=== PATIENT | female | born 1945 | race Caucasian/White ===

== ENCOUNTER 2016-10-06 10:42 | Emergency (ER) | payer OTHER ==
[~2016-10-06] VITALS: Ht 157.5 cm; Wt 76.1 kg
[~2016-10-06 10:42] MED LIST: APRESOLINE25 MG PO; ASPIRIN81 M1 PO; AZELASTINE137 MCG/0. NS; Aspirin E.C. PO; CRESTOR40 MG PO; Cardizem CD,Cartia X PO; DOXYCYCLINE HY100 MG PO; DULERA 200 MCG/13 GM IH; FLUTICASONE PRO16 GM BOTH NARES; Flonase BOTH NARES; HYDROCHLOROTHIA50 MG PO; Hydrodiuril,Oretic,E PO; PREDNISONE10 M1 PO; TRICOR145 MG PO; Tricor PO; VITAMIN D31000 UNI2 PO; predniSONE PO
[2016-10-06 12:12] LABS: HEMATOCRIT 41.1 % (36.0-46.0); MCH 29.6 PG (29.0-34.0); MCHC 33.6 G/DL (30.0-36.0); MEAN PLAT.VOLUME 9.9 uM^3 (9.5-12.4); PLATELET COUNT 386 K/uL (156-360); RBC DIS.WIDTH-CV 13.1 % (11.8-14.6); RBC DIS.WIDTH-SD 42.2 % (39-53); RED BLOOD COUNT 4.67 M/uL (3.80-5.20); WHITE BLOOD COUNT 6.9 K/uL (4.1-10.2)
[2016-10-06 12:25] LABS: CHLORIDE 108 mEq/L (99-109); POTASSIUM 4.2 mEq/L (3.7-5.4); SODIUM 141 mEq/L (136-147)
[2016-10-06 12:26] LABS: GLUCOSE 83 mg/dL (70-99)
[2016-10-06 12:28] LABS: ANION GAP 13 MEQ/L (2-14)
[2016-10-06 12:30] LABS: GFR ESTIMATE (CALCULATED) > 59 mL/min/
[2016-10-06 12:31] LABS: UREA NITROGEN (BUN) 14 mg/dL (9-23)
[2016-10-06 12:31] LABS: TROP-I INTERPRETATION NEGATIVE; TROPONIN-I < 0.01 ng/mL (0.0-0.30)
[2016-10-06] MEDS ORDERED: BENADRYL25 MG PO (13:28)
[2016-10-06] MEDS ORDERED: PHENERGAN-CODE120 ML PO (13:28)
[2016-10-06 13:48] VITALS: BP 145/81
== END 2016-10-06 13:49 | disposition home or self-care (01) ==
LOC: EME 10:42
PROVIDERS: Emergency Medicine
DX: R05 Cough (principal); R04.0 Epistaxis; R53.83 Other fatigue; I10 Essential (primary) hypertension; E78.5 Hyperlipidemia, unspecified; Z79.82 Long term (current) use of aspirin; Z79.52 Long term (current) use of systemic steroids; Z87.891 Personal history of nicotine dependence
CPT/HCPCS: 71020; 80048; 84484; 85027; 93005; 94640; 99281; 99284